=== PATIENT | female | born 1975 | race Caucasian/White ===

== ENCOUNTER 2017-05-14 16:27 | Emergency (ER) | payer MEDICAID, OTHER ==
[2017-05-14 16:55] VITALS: BP 117/65; PULSE 65; RESP 18; TEMP 99; O2SAT 99
[2017-05-14] MEDS ORDERED: Silver Sulfadiazine 1% CREAM (50 gm) TOP STA (17:10)
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
== END 2017-05-14 17:42 | disposition home or self-care (01) ==
LOC: H.ER 16:27
DX: T23.202A Burn of second degree of left hand, unspecified site, initial encounter (principal); X10.2XXA Contact with fats and cooking oils, initial encounter

== ENCOUNTER 2018-03-05 00:52 | Emergency (ER) | payer OTHER ==
[2018-03-05 02:17] LABS: BASO # 0.1 K/uL (0.0-0.2); EOS % 0.8 % (0.0-4.0); HEMOGLOBIN 12.5 g/dL (12.0-16.0); LYMPH # 2.3 K/uL (1.0-4.3); LYMPH % 37.1 % (20.0-40.0); MEAN CELL VOLUME 96.2 fl (81.0-99.0); MEAN CORPUSCULAR HEMOGLOBIN 31.8 pg (27.0-31.0); MEAN CORPUSCULAR HGB CONC 33.1 g/dL (33.0-37.0); MEAN PLATELET VOLUME 9.2 fl (7.2-11.7); MONO # 0.4 K/uL (0.0-0.8); MONO % 7.1 % (0.0-10.0); NEUT # 3.3 K/uL (1.8-7.0); RBC 3.93 Mil/uL (3.80-5.20); RED CELL DISTRIBUTION WIDTH 13.5 % (11.5-14.5); WHITE BLOOD COUNT 6.2 K/uL (4.8-10.8)
[2018-03-05 02:24] LABS: BLOOD UREA NITROGEN 15 mg/dl (7-17); CALCIUM 8.5 mg/dL (8.4-10.2); GFR AFRICAN-AMERICAN > 60; GFR NON-AFRICAN AMERICAN > 60
[2018-03-05 02:28] LABS: SQUAMOUS EPITHIAL 2 /hpf (0-5); URINE BACTERIA RARE (<OCC); URINE BILIRUBIN NEGATIVE (NEGATIVE); URINE BLOOD NEGATIVE (NEGATIVE); URINE CLARITY SLIGHTY-CLOUDY (Clear); URINE COLOR YELLOW (YELLOW); URINE GLUCOSE (UA) NEG (Normal); URINE LEUKOCYTE ESTERASE NEG Leu/uL (Negative); URINE PROTEIN NEGATIVE (NEGATIVE)
--- NOTE | 2018-03-05 04:03 | ED PDOC ---
HPI: Chest Pain Time Seen by Provider: 03/05/18 01:09 Chief Complaint (Nursing): Chest Pain Chief Complaint (Provider): Chest Pain History Per: Patient History/Exam Limitations: no limitations Onset/Duration Of Symptoms: Hrs (x 2) Additional Complaint(s): 42 year old female with history of asthma presents to the ED complaining of dizziness, shortness of breath and chest pain onset two hours. Patient admits she is anxious and stressed by her special needs son. She denies N/V/D. Past Medical History Reviewed: Historical Data, Nursing Documentation, Vital Signs Vital Signs: Last Vital Signs Temp 98.3 F 03/05/18 04:14 Pulse 78 03/05/18 04:14 Resp 16 03/05/18 04:14 BP 143/79 03/05/18 04:14 Pulse Ox 100 03/05/18 22:27 - Medical History PMH: Asthma, Migraine, Seizures (epilepsy) Denies: Chronic Kidney Disease - Surgical History Surgical History: Endoscopy Other surgeries: Right arm contracture, trible ligation, limp pliked for both legs. - Family History Family History: States: No Known Family Hx - Home Medications Home Medications: Ambulatory Orders Medication Instructions Recorded Levetiracetam [Keppra] 1,250 mg PO BID 02/06/15 Omeprazole 1 tab PO DAILY 12/27/17 SUMAtriptan succinate [Imitrex Tab] 1 tab PO DAILY 12/27/17 - Allergies Allergies/Adverse Reactions: Allergies Allergy/AdvReac Type Severity Reaction Status Date / Time Contrast Dye Allergy URTICARIA Uncoded 12/27/17 10:31 Review of Systems ROS Statement: Except As Marked, All Systems Reviewed And Found Negative Cardiovascular: Positive for: Chest Pain Respiratory: Positive for: Shortness of Breath. Negative for: Cough Gastrointestinal: Negative for: Nausea, Vomiting Neurological: Positive for: Dizziness Psych: Positive for: Anxiety Physical Exam - Reviewed Nursing Documentation Reviewed: Yes Vital Signs Reviewed: Yes - Physical Exam Appears: Positive for: Non-toxic, No Acute Distress Head Exam: Positive for: ATRAUMATIC, NORMOCEPHALIC Skin: Positive for: Normal Color, Warm, Dry Eye Exam: Positive for: Normal appearance, EOMI, PERRL ENT: Positive for: Normal ENT Inspection Neck: Positive for: Normal Cardiovascular/Chest: Positive for: Regular Rate, Rhythm. Negative for: Murmur Respiratory: Positive for: Normal Breath Sounds. Negative for: Respiratory Distress Gastrointestinal/Abdominal: Positive for: Normal Exam, Soft. Negative for: Tenderness Back: Positive for: Normal Inspection. Negative for: L CVA Tenderness, R CVA Tenderness Extremity: Positive for: Normal ROM Neurologic/Psych: Positive for: Alert, Oriented - Laboratory Results Result Diagrams: 03/05/18 02:08 03/05/18 02:08 - ECG O2 Sat by Pulse Oximetry: 100 (RA) Pulse Ox Interpretation: Normal Medical Decision Making Medical Decision Making: Initial Impression: 42 year old female with shortness of breath and chest pain. Initial Plan: --EKG --Chest Portable ____ Time: 0334 Lab reviews show no significant abnormalities and chest xray show no active disease. Patient reports improvement of symptoms Diagnosis: Anxiety and a atypical chest pain. Patient advised to f/u with PCP Scribe Attestation: Documented by Mariana Fitzgerald, acting as a scribe for Jayant Wyatt MD. Provider Scribe Attestation: All medical record entries made by the Scribe were at my direction and personally dictated by me. I have reviewed the chart and agree that the record accurately reflects my personal performance of the history, physical exam, medical decision making, and the department course for this patient. I have also personally directed, reviewed, and agree with the discharge instructions and disposition. Disposition - Clinical Impression Clinical Impression: Atypical chest pain, Anxiety - Disposition Disposition Time: 04:00 Condition: STABLE Instructions: Chest Pain That Is Not Caused by the Heart (DC) Forms: [employer] (Comoran)
[2018-03-05 04:15] VITALS: BP 143/79; PULSE 78; RESP 16; TEMP 98.3
--- NOTE | 2018-03-05 08:28 | RAD ---
HISTORY: chest pain COMPARISON: No prior. FINDINGS: LUNGS: No active pulmonary disease. PLEURA: No significant pleural effusion identified, no pneumothorax apparent. CARDIOVASCULAR: Normal. OSSEOUS STRUCTURES: No significant abnormalities. VISUALIZED UPPER ABDOMEN: Normal. OTHER FINDINGS: None. IMPRESSION: No active disease.
--- NOTE | 2018-03-05 08:33 | CARD ---
APPROVED REPORT EKG Measurement Heart [id number] <Conclusion> Normal sinus rhythm with sinus arrhythmia Normal ECG
[2018-03-05 22:28] VITALS: O2SAT 100
== END 2018-03-05 04:17 | disposition home or self-care (01) ==
LOC: H.ER 00:52
DX: R07.89 Other chest pain (principal); F41.9 Anxiety disorder, unspecified; J45.909 Unspecified asthma, uncomplicated; Z86.69 Personal history of other diseases of the nervous system and sense organs

== ENCOUNTER 2018-03-23 18:49 | Emergency (ER) | payer OTHER ==
[2018-03-23 18:55] VITALS: BP 138/75; PULSE 77; RESP 16; TEMP 98.9; O2SAT 98
[2018-03-23] MEDS ORDERED: Lidocaine 5% Patch TD STA (19:05)
[2018-03-23] MEDS ORDERED: Lidocaine 5% Patch TD ONE (19:31)
--- NOTE | 2018-03-23 20:04 | ED PDOC ---
HPI: Back Time Seen by Provider: 03/23/18 18:52 Chief Complaint (Nursing): Back Pain Chief Complaint (Provider): Back Pain History/Exam Limitations: no limitations Onset/Duration Of Symptoms: Hrs Current Symptoms Are (Timing): Still Present Quality Of Discomfort: "Pain" Additional Complaint(s): 42 y/o female with a history of herniated discs presents to the ED with neck and lower back pain. Patient was prescribed Flexiril for the pain but ran out a month ago. When she felt pain in her neck a few hours prior to visit she decided to come into the ED. PMD: Gaurav Pulido Past Medical History Reviewed: Historical Data, Nursing Documentation, Vital Signs Vital Signs: Last Vital Signs Temp 98.9 F 03/23/18 18:52 Pulse 77 03/23/18 18:52 Resp 16 03/23/18 18:52 BP 138/75 03/23/18 18:52 Pulse Ox 98 03/23/18 18:52 - Medical History PMH: Asthma, Migraine, Seizures (epilepsy) Denies: Chronic Kidney Disease - Surgical History Surgical History: Endoscopy - Family History Family History: States: No Known Family Hx - Home Medications Home Medications: Ambulatory Orders Medication Instructions Recorded Levetiracetam [Keppra] 1,250 mg PO BID 02/06/15 Omeprazole 1 tab PO DAILY 12/27/17 SUMAtriptan succinate [Imitrex Tab] 1 tab PO DAILY 12/27/17 Cyclobenzaprine [Cyclobenzaprine 10 mg PO Q8 PRN #14 tab 03/23/18 HCl] Lidocaine 5% [Lidoderm] 1 ea TD DAILY PRN #10 patch 03/23/18 - Allergies Allergies/Adverse Reactions: Allergies Allergy/AdvReac Type Severity Reaction Status Date / Time Contrast Dye Allergy URTICARIA Uncoded 03/23/18 18:52 Review of Systems ROS Statement: Except As Marked, All Systems Reviewed And Found Negative Constitutional: Negative for: Fever, Other (recent trauma) Gastrointestinal: Negative for: Abdominal Pain Genitourinary Female: Negative for: Dysuria, Incontinence, Hematuria Musculoskeletal: Positive for: Neck Pain, Back Pain Physical Exam - Reviewed Nursing Documentation Reviewed: Yes Vital Signs Reviewed: Yes - Physical Exam Appears: Positive for: Well, Non-toxic, No Acute Distress Head Exam: Positive for: ATRAUMATIC, NORMAL INSPECTION, NORMOCEPHALIC Skin: Positive for: Normal Color, Warm. Negative for: Rash Cardiovascular/Chest: Positive for: Regular Rate, Rhythm Respiratory: Positive for: CNT, Normal Breath Sounds Gastrointestinal/Abdominal: Positive for: Normal Exam, Soft. Negative for: Tenderness Back: Positive for: Normal Inspection, Other (bilateral paracervical tenderness and paralumbar tenderness). Negative for: L CVA Tenderness, R CVA Tenderness, Vertebral Tenderness Extremity: Positive for: Normal ROM Neurologic/Psych: Positive for: Alert, Oriented (x3), Gait (is steady) - Laboratory Results Urine POC: Negative Urine dip results: Negative for: Leukocyte Esterase, Blood, Nitrate, Ketones, Glucose, Bilirubin, Protein - ECG O2 Sat by Pulse Oximetry: 98 (RA) Pulse Ox Interpretation: Normal - Progress Condition: Re-examined, Improved (Requesting Rx for lidoderm as it helped her pain. ) Medical Decision Making Medical Decision Making: Time: 18:52 Impression: Chronic neck and back pain Plan: * UDip * Test * Valium 5 mg PO * Toradol 30 mg IM * Lidocaine Scribe Attestation: Documented by Tim Xie acting as a scribe for David Dennis PA-C. MD Scribe Attestation: All medical record entries made by the Scribe were at my direction and personally dictated by me. I have reviewed the chart and agree that the record accurately reflects my personal performance of the history, physical exam, medical decision making, and the department course for this patient. I have also personally directed, reviewed, and agree with the discharge instructions and disposition. Disposition - Clinical Impression Clinical Impression: Chronic neck and back pain - Patient ED Disposition Is Patient to be Admitted: No - Disposition Referrals: [facility] [Outside] Disposition: Routine/Home Disposition Time: 20:19 Condition: IMPROVED Additional Instructions: Follow up with PMD for further evaluation Return to ED immediately if symptoms worsen. Prescriptions: Cyclobenzaprine [Cyclobenzaprine HCl] 10 mg PO Q8 PRN #14 tab PRN Reason: Muscle Spasm Lidocaine 5% [Lidoderm] 1 ea TD DAILY PRN #10 patch PRN Reason: pain Instructions: Low Back Pain in Adults, Neck Pain Forms: [facility] (Grenadian) Print Language: FRISIAN
== END 2018-03-23 20:52 | disposition home or self-care (01) ==
LOC: H.ER 18:49
DX: M54.9 Dorsalgia, unspecified (principal); M54.2 Cervicalgia; G40.909 Epilepsy, unspecified, not intractable, without status epilepticus; G89.29 Other chronic pain
CPT/HCPCS: 81025; 96372; 99283; J1885

== ENCOUNTER 2018-12-25 19:52 | Emergency (ER) | payer OTHER ==
[2018-12-25 19:57] VITALS: BP 126/82; PULSE 80; RESP 16; TEMP 98.2; O2SAT 100
--- NOTE | 2018-12-25 20:28 | ED PDOC ---
HPI: General Adult Time Seen by Provider: 12/25/18 20:26 Chief Complaint (Nursing): Lower Extremity Problem/Injury Chief Complaint (Provider): right ankle/foot pain History Per: Patient (43 y/o female s/p sx 6 years ago for fx here with ankle/foot pain that occurred after walking. Did not take any medications.) Past Medical History Reviewed: Historical Data, Nursing Documentation, Vital Signs Vital Signs: Last Vital Signs Temp 98.2 F 12/25/18 19:54 Pulse 80 12/25/18 19:54 Resp 16 12/25/18 19:54 BP 126/82 12/25/18 19:54 Pulse Ox 100 12/25/18 19:54 - Medical History PMH: Asthma, Migraine, Seizures (epilepsy) Denies: Chronic Kidney Disease - Surgical History Surgical History: Endoscopy - Family History Family History: States: No Known Family Hx - Home Medications Home Medications: Ambulatory Orders Medication Instructions Recorded Levetiracetam [Keppra] 1,250 mg PO BID 02/06/15 RX: Omeprazole 1 tab PO DAILY 12/27/17 RX: SUMAtriptan succinate [Imitrex 1 tab PO DAILY 12/27/17 Tab] Cyclobenzaprine [Cyclobenzaprine 10 mg PO Q8 PRN #14 tab 03/23/18 HCl] Lidocaine 5% [Lidoderm] 1 ea TD DAILY PRN #10 patch 03/23/18 RX: Naproxen 375 mg PO Q8 PRN #15 tablet 12/25/18 - Allergies Allergies/Adverse Reactions: Allergies Allergy/AdvReac Type Severity Reaction Status Date / Time Contrast Dye Allergy URTICARIA Uncoded 03/23/18 18:52 Review of Systems ROS Statement: Except As Marked, All Systems Reviewed And Found Negative Musculoskeletal: Positive for: Foot Pain, Other (ankle pain) Physical Exam - Reviewed Nursing Documentation Reviewed: Yes Vital Signs Reviewed: Yes - Physical Exam Appears: Positive for: Well, Non-toxic, No Acute Distress Head Exam: Positive for: ATRAUMATIC, NORMAL INSPECTION, NORMOCEPHALIC Skin: Positive for: Normal Color, Warm, DRY Eye Exam: Positive for: EOMI, Normal appearance, PERRL ENT: Positive for: Normal ENT Inspection Neck: Positive for: Normal, Painless ROM Cardiovascular/Chest: Positive for: Regular Rate, Rhythm Respiratory: Positive for: CNT, Normal Breath Sounds Gastrointestinal/Abdominal: Positive for: Normal Exam, Soft Back: Positive for: Normal Inspection Extremity: Positive for: Normal ROM, Other (?old deformity noted by ankle. No ecchymosis/swelling. MOderate tenderness by left medial malleoulus ankle and dorsum of foot.) Neurologic/Psych: Positive for: Alert, Oriented - ECG O2 Sat by Pulse Oximetry: 100 - Progress ED Course And Treament: d/w podiatry resident who has reviewed patient's xry. We will webroll/hardik wrap / offer crutches. Patient to f/u tomorrow in clinic as Dr. Hensley will be available to see her at that time. Disposition - Clinical Impression Clinical Impression: Ankle pain, right - Patient ED Disposition Is Patient to be Admitted: No - Disposition Referrals: Podiatry Clinic [Outside] Disposition: Routine/Home Disposition Time: 21:14 Condition: IMPROVED Additional Instructions: YOU MUST CALL PODIATRY CLINIC TOMORROW IN MORNING AND MAKE APPOINTMENT WITH DR. HENSLEY. Prescriptions: RX: Naproxen 375 mg PO Q8 PRN #15 tablet PRN Reason: Pain, Moderate (4-7) Instructions: Ankle Sprain (DC)
--- NOTE | 2018-12-26 08:22 | RAD ---
Date of service: 12/25/2018 PROCEDURE: Right Ankle Radiographs. HISTORY: ankle pain COMPARISON: Right ankle 06/10/2014. FINDINGS: BONES: No acute fracture or destructive bony lesion identified. Prior ORIF right distal fibula stable. JOINTS: Normal. No osteoarthritis. Ankle mortise maintained. Talar dome intact SOFT TISSUES: Normal. OTHER FINDINGS: None. IMPRESSION: No acute fracture or dislocation. Prior ORIF right distal fibula stable.
--- NOTE | 2018-12-26 08:23 | RAD ---
Date of service: 12/25/2018 PROCEDURE: Right Foot Radiographs. HISTORY: pain COMPARISON: Right foot radiographs 05/26/2013. FINDINGS: BONES: Interval or ORIF distal right fibula identified. No acute fracture or destructive bony lesion appreciable throughout the right foot. JOINTS: Normal. SOFT TISSUES: Normal. OTHER FINDINGS: None. IMPRESSION: No acute fracture or dislocation identified throughout the right foot. Prior ORIF distal right fibular identified.
== END 2018-12-25 21:59 | disposition home or self-care (01) ==
LOC: H.ER 19:52
DX: M25.571 Pain in right ankle and joints of right foot (principal); J45.909 Unspecified asthma, uncomplicated; G40.909 Epilepsy, unspecified, not intractable, without status epilepticus

== ENCOUNTER 2019-03-04 05:24 | Emergency (ER) | payer OTHER ==
[2019-03-04] MEDS ORDERED: levETIRAcetam 1,000 MG in Sodium Chloride 0.9% 100 ML IV STA (05:56)
[2019-03-04] MEDS ORDERED: Sodium Chloride 0.9% 1,000 ML IV STA (05:57)
--- NOTE | 2019-03-04 06:22 | ED PDOC ---
HPI: Seizure Time Seen by Provider: 03/04/19 05:29 Chief Complaint (Nursing): Seizure Chief Complaint (Provider): Seizure History Per: Patient History/Exam Limitations: no limitations Additional Complaint(s): 43 years old female with history of seizure disorder and ulcers presents to ER for evaluation of seizure. Patient reports she takes Keppra 2,000 mg twice a day but unsure if she took it last night. She states on midnight she was feeling well and fell asleep in her daughter's bed. She reports daughter told her she had seizure but does not remember if she had one. Patient states she might have had a seizure because she was very tired last night. She reports burning epigastric abdominal pain. Patient denies tongue biting, loose stoles or urine. PMD: Clifton Nolasco Past Medical History Reviewed: Historical Data, Nursing Documentation, Vital Signs Vital Signs: Last Vital Signs Temp 98.7 F 03/04/19 05:45 Pulse 102 H 03/04/19 05:45 Resp 18 03/04/19 05:45 BP 117/71 03/04/19 05:45 Pulse Ox 98 03/04/19 05:45 - Medical History PMH: Asthma, Migraine, Seizures (epilepsy) Denies: Chronic Kidney Disease - Surgical History Surgical History: Endoscopy - Family History Family History: States: Unknown Family Hx - Home Medications Home Medications: Ambulatory Orders Medication Instructions Recorded Levetiracetam [Keppra] 1,250 mg PO BID 02/06/15 Omeprazole 1 tab PO DAILY 12/27/17 SUMAtriptan succinate [Imitrex Tab] 1 tab PO DAILY 12/27/17 Cyclobenzaprine [Cyclobenzaprine 10 mg PO Q8 PRN #14 tab 03/23/18 HCl] Lidocaine 5% [Lidoderm] 1 ea TD DAILY PRN #10 patch 03/23/18 Naproxen 375 mg PO Q8 PRN #15 tablet 12/25/18 - Allergies Allergies/Adverse Reactions: Allergies Allergy/AdvReac Type Severity Reaction Status Date / Time Contrast Dye Allergy URTICARIA Uncoded 03/23/18 18:52 Review of Systems ROS Statement: Except As Marked, All Systems Reviewed And Found Negative Gastrointestinal: Positive for: Abdominal Pain (epigastric) Neurological: Positive for: Seizures Physical Exam - Reviewed Nursing Documentation Reviewed: Yes Vital Signs Reviewed: Yes - Physical Exam Appears: Positive for: No Acute Distress (Tired appearing) Head Exam: Positive for: ATRAUMATIC, NORMOCEPHALIC Skin: Positive for: Normal Color, Warm, Dry Eye Exam: Positive for: Normal appearance, EOMI, PERRL ENT: Positive for: Normal ENT Inspection Neck: Positive for: Normal, Painless ROM, Supple Cardiovascular/Chest: Positive for: Regular Rate, Rhythm. Negative for: Murmur Respiratory: Positive for: Normal Breath Sounds. Negative for: Respiratory Distress Gastrointestinal/Abdominal: Positive for: Tenderness (Epigastric) Neurological/Psych: Positive for: Awake, Alert, Oriented (x3), Other (Cranial nerves and motor sensory are normal) - Laboratory Results Result Diagrams: 03/04/19 06:30 03/04/19 06:30 - ECG O2 Sat by Pulse Oximetry: 98 (RA) Pulse Ox Interpretation: Normal Medical Decision Making Medical Decision Making: Time: 05 A/P: Possible seizure triggers may have been lack of sleep and possible meds noncompliance --Alcohol serum --BMP --Drug screen --Lactic acid --CBC --Levetiracetam --Pepcid 20 mg --Urinalysis 0700 Patient signed out to Dr. Bangura, pending labs and reeval. Scribe Attestation: Documented by Mariana Fitzgerald, acting as a scribe for Felix Hamlin MD. Provider Scribe Attestation: All medical record entries made by the Scribe were at my direction and personally dictated by me. I have reviewed the chart and agree that the record accurately reflects my personal performance of the history, physical exam, medical decision making, and the department course for this patient. I have also personally directed, reviewed, and agree with the discharge instructions and disposition. Disposition - Clinical Impression Clinical Impression: Seizure disorder - Patient ED Disposition Is Patient to be Admitted: Transfer of Care - Disposition Referrals: [facility] [Outside] - 03/06/19 Disposition: Transfer of Care Disposition Time: 07:00 Condition: STABLE Instructions: Seizures, Adult (DC) Patient Signed Over To: Francis Bangura (pending labs and reeval)
[2019-03-04 06:45] LABS: BASO # 0.1 K/uL (0.0-0.2); BASO % 0.8 % (0.0-2.0); EOS % 0.3 % (0.0-4.0); HEMOGLOBIN 12.7 g/dL (12.0-16.0); LYMPH # 1.4 K/uL (1.0-4.3); LYMPH % 15.3 % (20.0-40.0); MEAN CELL VOLUME 96.3 fl (81.0-99.0); MEAN CORPUSCULAR HGB CONC 33.2 g/dL (33.0-37.0); MEAN PLATELET VOLUME 8.9 fl (7.2-11.7); MONO # 0.4 K/uL (0.0-0.8); MONO % 4.1 % (0.0-10.0); NEUT # 7.4 K/uL (1.8-7.0); NEUT % 79.5 % (50.0-75.0); RBC 3.98 Mil/uL (3.80-5.20); RED CELL DISTRIBUTION WIDTH 13.4 % (11.5-14.5); WHITE BLOOD COUNT 9.3 K/uL (4.8-10.8)
[2019-03-04 06:59] LABS: BLOOD UREA NITROGEN 18 mg/dl (7-17); CALCIUM 8.7 mg/dL (8.4-10.2); GFR NON-AFRICAN AMERICAN > 60
--- NOTE | 2019-03-04 07:11 | ED PDOC ---
- Laboratory Results Result Diagrams: 03/04/19 06:30 03/04/19 06:30 Interpretation Of Abn Labs: no acute - ECG O2 Sat by Pulse Oximetry: 98 (RA) - Progress ED Course And Treament: 933: Stable. AAOx3. Pain free. Tolerated PO. Fu with pcp. Pt. was given keppra in ER as she may have missed dose last night. Hx of seizures. Medical Decision Making Medical Decision Making: Time: 0700 --Patient is endorsed to provider by Dr. Hamlin, pending lab results and re- evaluation. Scribe Attestation: Documented by Deborah Medrano, acting as a scribe for Francis Bangura MD. Provider Scribe Attestation: All medical record entries made by the Scribe were at my direction and personally dictated by me. I have reviewed the chart and agree that the record accurately reflects my personal performance of the history, physical exam, medical decision making, and the department course for this patient. I have also personally directed, reviewed, and agree with the discharge instructions and disposition. Disposition Counseled Patient/Family Regarding: Studies Performed, Diagnosis, Need For Followup - Clinical Impression Clinical Impression: Seizure disorder - POA Present On Arrival: None - Disposition Referrals: [facility] [Outside] - 03/06/19 Disposition: Routine/Home Disposition Time: 09:34 Condition: STABLE Additional Instructions: Return if not better in 3 days. Instructions: Seizures, Adult (DC)
[2019-03-04 07:13] VITALS: TEMP 98.5
[2019-03-04 07:21] LABS: SQUAMOUS EPITHIAL 2 /hpf (0-5); URINE BILIRUBIN NEGATIVE (NEGATIVE); URINE BLOOD NEGATIVE (NEGATIVE); URINE CLARITY CLEAR (Clear); URINE COLOR STRAW (YELLOW); URINE GLUCOSE (UA) NEG (NEGATIVE); URINE LEUKOCYTE ESTERASE TRACE Leu/uL (Negative); URINE PROTEIN NEGATIVE (NEGATIVE); URINE UROBILINOGEN 0.2-1.0 mg/dL (0.2-1.0)
[2019-03-04 07:49] LABS: BARBITURATES, UR NEGATIVE (NEGATIVE); BENZODIAZEPINES, UR NEGATIVE (NEGATIVE); OPIATES, UR NEGATIVE (NEGATIVE); PHENCYCLIDINE, UR NEGATIVE (NEGATIVE)
[2019-03-04 09:35] VITALS: O2SAT 98
[2019-03-04 10:31] VITALS: BP 116/72; PULSE 85; RESP 18
== END 2019-03-04 10:19 | disposition home or self-care (01) ==
LOC: H.ER 05:24
DX: G40.909 Epilepsy, unspecified, not intractable, without status epilepticus (principal); J45.909 Unspecified asthma, uncomplicated
CPT/HCPCS: 80048; 80177; 80320; 80324; 80345; 80346; 80349; 80353; 80358; 80361; 81003; 81025; 83605; 83992; 85025; 96361; 96374; 96375; 99285; J1953; J7030

== ENCOUNTER 2019-03-12 22:08 | Emergency (ER) | payer OTHER ==
[2019-03-12 22:16] VITALS: BP 110/73; PULSE 86; RESP 18; TEMP 98.8; O2SAT 100
--- NOTE | 2019-03-12 22:28 | ED PDOC ---
HPI: General Adult Time Seen by Provider: 03/12/19 22:26 Chief Complaint (Nursing): Back Pain Chief Complaint (Provider): neck pain History Per: Patient (43 y/o female here with neck pain ongoing x 3 days and intermittent tingling in left hand. Patient has h/o herniated disc in neck and states she is followed by her neurologist Dr. Wu. Took flexeril prior to arrival without relief. Patient has h/o seizures.) Past Medical History Reviewed: Historical Data, Nursing Documentation, Vital Signs Vital Signs: Last Vital Signs Temp 98.8 F 03/12/19 22:13 Pulse 86 03/12/19 22:13 Resp 18 03/12/19 22:13 BP 110/73 03/12/19 22:13 Pulse Ox 100 03/12/19 22:13 - Medical History PMH: Asthma, Migraine, Seizures (epilepsy) Denies: Chronic Kidney Disease - Surgical History Surgical History: Endoscopy - Family History Family History: States: Unknown Family Hx - Home Medications Home Medications: Ambulatory Orders Medication Instructions Recorded Levetiracetam [Keppra] 1,250 mg PO BID 02/06/15 Omeprazole 1 tab PO DAILY 12/27/17 SUMAtriptan succinate [Imitrex Tab] 1 tab PO DAILY 12/27/17 Cyclobenzaprine [Cyclobenzaprine 10 mg PO Q8 PRN #14 tab 03/23/18 HCl] Lidocaine 5% [Lidoderm] 1 ea TD DAILY PRN #10 patch 03/23/18 Naproxen 375 mg PO Q8 PRN #15 tablet 12/25/18 Naproxen 375 mg PO Q8 PRN #21 tablet 03/12/19 - Allergies Allergies/Adverse Reactions: Allergies Allergy/AdvReac Type Severity Reaction Status Date / Time Contrast Dye Allergy URTICARIA Uncoded 03/23/18 18:52 Review of Systems ROS Statement: Except As Marked, All Systems Reviewed And Found Negative Physical Exam - Reviewed Nursing Documentation Reviewed: Yes Vital Signs Reviewed: Yes - Physical Exam Appears: Positive for: Well, Non-toxic, No Acute Distress Head Exam: Positive for: ATRAUMATIC, NORMAL INSPECTION, NORMOCEPHALIC Skin: Positive for: Normal Color, Warm, DRY Eye Exam: Positive for: EOMI, Normal appearance, PERRL ENT: Positive for: Normal ENT Inspection Neck: Positive for: Normal, Painless ROM, Pain On Movement Of Neck (paracervical tenderness noted.) Cardiovascular/Chest: Positive for: Regular Rate, Rhythm Respiratory: Positive for: CNT, Normal Breath Sounds Gastrointestinal/Abdominal: Positive for: Normal Exam, Soft Back: Positive for: Normal Inspection Extremity: Positive for: Normal ROM Neurological/Psych: Positive for: Awake, Alert, Normal Tone - ECG O2 Sat by Pulse Oximetry: 100 - Progress ED Course And Treament: toradol 30 mg IM x 1 dose Disposition - Clinical Impression Clinical Impression: Neck muscle strain, Cervical radiculopathy - Patient ED Disposition Is Patient to be Admitted: No - Disposition Disposition: Routine/Home Disposition Time: 22:57 Condition: FAIR Prescriptions: Naproxen 375 mg PO Q8 PRN #21 tablet PRN Reason: Pain, Moderate (4-7) Instructions: Radiculopathy (DC), Neck Sprain (DC)
== END 2019-03-12 23:20 | disposition home or self-care (01) ==
LOC: H.ER 22:08
DX: M54.12 Radiculopathy, cervical region (principal); S16.1XXA Strain of muscle, fascia and tendon at neck level, initial encounter; X58.XXXA Exposure to other specified factors, initial encounter; Y92.89 Other specified places as the place of occurrence of the external cause; G40.909 Epilepsy, unspecified, not intractable, without status epilepticus
CPT/HCPCS: 81025; 96372; 99283; J1885